=== PATIENT | male | born 1970 | race Caucasian/White ===

== ENCOUNTER 2017-11-03 06:07 | Day surgery (SDC) | payer OTHER | END 2017-11-03 16:00 | disposition home or self-care (01) | LOC: CCL 06:07 → SDS 06:07 | DX: I82.402 Acute embolism and thrombosis of unspecified deep veins of left lower extremity (principal); E11.9 Type 2 diabetes mellitus without complications; I25.10 Atherosclerotic heart disease of native coronary artery without angina pectoris; N18.9 Chronic kidney disease, unspecified; G40.909 Epilepsy, unspecified, not intractable, without status epilepticus | CPT/HCPCS: 37191; 75825; 75940; 76937 ==

== ENCOUNTER 2018-01-26 19:01 | Inpatient (IN) | payer OTHER ==
[2018-01-26] MEDS ORDERED: NORepinephrine 8MG/250 ML (PMX 250 ML IV (20:00)
[2018-01-26 20:41] LABS: HEMOGLOBIN A1C 6.3 % (0-5.9)
[2018-01-26 23:28] LABS: Allen Test ACCEPTAB; Arterial Blood Gas Oxygen Sat 97.7 mmHG (95.0-98.0); Arterial COHb 0.3 % (0.0-3.0); Arterial Fraction of Oxyhgb 96.9 % (93.0-99.0); Arterial HCO3 9.1 mmol/L (22.0-26.0); Arterial MetHb 0.5 % (0.0-1.5); Arterial Total Hemglobin 11.3 g/dl (12.0-18.0); Arterial pCO2 20.5 mmhg (35-45); Blood Gas Mean Airway Pressure 14; MODE VENT - AC; Site Right Radial
[2018-01-26] MEDS ORDERED: DEXTROSE 5%-0.45% NACL 1,000 ML IV (23:42)
[2018-01-27] MEDS ORDERED: ALBUTEROL/IPRATROPIUM (NEB) 3 ML AMP NEB
[2018-01-27] MEDS ORDERED: SODIUM BICARBONATE IV
[2018-01-27] MEDS ORDERED: DEXTROSE 5% IV
[2018-01-27] MEDS ORDERED: ACETAMINOPHEN 650 MG SUPP PR
[2018-01-27] MEDS ORDERED: ACETAMINOPHEN 650MG/20.3ML CUP PO
[2018-01-27] MEDS: SODIUM BICARBONATE (IV ADD) 100 MEQ in DEXTROSE 5% 1,000 ML IV (01:00)
[2018-01-27] MEDS: INSULIN ASPART [NOVOLOG] 3 ML PEN SC ×6 (01:00→21:00)
[2018-01-27] MEDS ORDERED: HYDROCODONE/APAP (5/325) TAB PO (01:30)
[2018-01-27] MEDS ORDERED: LOPERAMIDE HCL 1 MG/5 ML LIQUID (10 ML UD CUP) GTB (01:30)
[2018-01-27] MEDS ORDERED: DIPHENHYDRAMINE 50 MG INJ IV (01:30)
[2018-01-27] MEDS: ACCU-CHEK XX (02:00)
[2018-01-27] MEDS ORDERED: ONDANSETRON 4 MG INJ IV ×2 (02:00)
[2018-01-27] MEDS: IOHEXOL 14.3 MG(I)/ML (ADULT) BTL PO (03:15)
[2018-01-27] MEDS: LEVETIRACETAM 1500 MG (PMX) 100 ML IVPB ×2 (04:48→20:55)
[2018-01-27] MEDS: LANSOPRAZOLE 30 MG CAP GTB (05:53)
[2018-01-27] MEDS: METOCLOPRAMIDE 10 MG INJ IV ×3 (06:30→22:49)
[2018-01-27] MEDS: MIDODRINE 5 MG TAB PO ×4 (06:30→23:04)
[2018-01-27] MEDS: CHOLESTYRAMINE 4 GM PACKET PO (07:00)
[2018-01-27] MEDS: LACTOBACILLUS RHAMNOSUS CAP PO (07:43)
[2018-01-27] MEDS: FAMOTIDINE 20 MG INJ IV ×2 (08:53→22:40)
[2018-01-27] MEDS: BALSAM PERU/CASTOR OIL 60 GM TUBE TOP ×2 (08:53→22:39)
[2018-01-27] MEDS: LINEZOLID 600 MG/D5W (PMX) 300 ML IVPB ×2 (08:54→21:16)
[2018-01-27] MEDS: LORATADINE 10 MG TAB GTB (08:54)
[2018-01-27] MEDS: CARBAMAZEPINE 200 MG TAB PO ×2 (08:54→21:04)
[2018-01-27] MEDS: VALPROIC ACID LIQUID CUP 250 MG/5 ML CUP GTB ×3 (08:55→21:05)
[2018-01-27] MEDS: MULTIVITAMINS 30 ML CUP GTB (08:55)
[2018-01-27] MEDS ORDERED: POTASSIUM CHLORIDE (SR) 20 MEQ TAB PO (09:00)
[2018-01-27] MEDS: RIFAXIMIN 200 MG TAB PO ×3 (09:28→21:03)
[2018-01-27] MEDS: PHENOBARBITAL 32.4 MG TAB PO ×2 (09:36→21:16)
[2018-01-27 09:55] LABS: Allen Test ACCEPTAB; Arterial Base Excess -13.9 mmol/L (-3.0-3); Arterial Blood Gas Oxygen Sat 97.6 mmHG (95.0-98.0); Arterial COHb 0.3 % (0.0-3.0); Arterial Fraction of Oxyhgb 96.9 % (93.0-99.0); Arterial MetHb 0.4 % (0.0-1.5); Arterial Total Hemglobin 9.1 g/dl (12.0-18.0); Arterial pCO2 23.2 mmhg (35-45); MODE VENT - AC; Site Left Radial
[2018-01-27] MEDS: SILVER SULFADIAZINE 1% 25 GM CR TOP ×2 (09:57→21:03)
[2018-01-27] MEDS: NYSTATIN 30 GM POWDER BTL TOP ×2 (09:57→21:02)
[2018-01-27 10:35] LABS: WHITE BLOOD COUNT 26.4 10^3/ul (4.8-10.8)
[2018-01-27 10:35] LABS: ABNORMAL IP MESSAGE 1; HEMATOCRIT 26.3 % (42.0-52.0); HEMOGLOBIN 7.8 g/dl (14.0-18.0); MEAN CORPUSCULAR HEMOGLOBIN 28.9 pg (29.0-33.0); MEAN CORPUSCULAR HGB CONC 29.7 g/dl (32.0-37.0); MEAN CORPUSCULAR VOLUME 97.4 fl (82.0-101.0); MEAN PLATELET VOLUME 11.9 fl (7.4-10.4); NUCLEATED RED BLOOD CELLS% 0.2 /100WBC (0.0-0.0); PLATELET COUNT 218 10^3/UL (140-415); POSITIVE DIFF @See below; RED CELL DISTRIBUTION WIDTH 18.6 % (11.5-14.5)
[2018-01-27 10:43] LABS: ADD MAN DIFF? YES
[2018-01-27 10:58] LABS: LACTIC ACID 7.3 mmol/L (0.5-2.0)
[2018-01-27 11:27] LABS: ANION GAP 25 (5-13); BLOOD UREA NITROGEN 78 mg/dl (7-20); CALCIUM 8.9 mg/dl (8.4-10.2); CARBON DIOXIDE 12 mmol/L (21-31); CHLORIDE 95 mmol/L (97-110); CREATININE 2.65 mg/dl (0.61-1.24); Estimated GFR 26 mL/min (>60); GLUCOSE 51 mg/dl (70-220); POTASSIUM 4.8 mmol/L (3.5-5.1); SODIUM 132 mmol/L (135-144)
[2018-01-27 11:38] LABS: PATH REVIEW? YES
[2018-01-27 11:41] LABS: ANISOCYTOSIS 1+ (0-0); BAND NEUTROPHILS #M 12.1 10^3/ul (0.0-0.6); BAND NEUTROPHILS % (M) 46 % (0-4); EOSINOPHILS % (M) 2 % (0-7); GIANT THROMBO% (M) 1 % (0-0); LYMPHOCYTES #M 1.3 10^3/ul (0.8-2.9); LYMPHOCYTES % (M) 5 % (15-51); MICROCYTOSIS 1+ (0-0); MONOCYTE #M 0.7 10^3/ul (0.3-0.9); MONOCYTES % (M) 3 % (0-11); MYELOCYTES #M 0.7 10^3/ul (0.0-0.0); MYELOCYTES % (M) 3 % (0-0); PLATELET ESTIMATE NORMAL; POIKILOCYTOSIS 1+ (0-0); POLYCHROMASIA 1+ (0-0); SEGMENTED NEUTROPHILS (M) % 41 % (39-77); SMUDGE%M 1 % (0-0)
[2018-01-27] MEDS: NA BICARBONATE 8.4% 50 ML SYG IV (11:42)
[2018-01-27] MEDS: SOD CHLORIDE 0.9% IVPB ×2 (11:42→22:39)
[2018-01-27] MEDS: CEFTAZIDIME IVPB ×2 (11:42→22:39)
[2018-01-27] MEDS: AVIBACTAM IVPB ×2 (11:42→22:39)
[2018-01-27] MEDS: SODIUM BICARBONATE (IV ADD) 150 MEQ in DEXTROSE 5% 1,000 ML IV ×2 (11:47→22:40)
[2018-01-27 11:54] LABS: ALANINE AMINOTRANSFERASE 24 IU/L (13-69); ALBUMIN 2.1 g/dl (3.3-4.9); ALKALINE PHOSPHATASE 344 IU/L (42-121); ASPARTATE AMINO TRANSFERASE 73 IU/L (15-46); BILIRUBIN,INDIRECT 0.2 mg/dl (0-1.1); BILIRUBIN,TOTAL 0.9 mg/dl (0.2-1.3)
[2018-01-27] MEDS: metroNIDAZOLE 500 MG/NS (PMX) 100 ML IVPB ×2 (14:45→22:39)
[2018-01-27 14:53] LABS: ABNORMAL IP MESSAGE 1; HEMATOCRIT 26.8 % (42.0-52.0); HEMOGLOBIN 8.1 g/dl (14.0-18.0); MEAN CORPUSCULAR HEMOGLOBIN 29.1 pg (29.0-33.0); MEAN CORPUSCULAR HGB CONC 30.2 g/dl (32.0-37.0); MEAN CORPUSCULAR VOLUME 96.4 fl (82.0-101.0); MEAN PLATELET VOLUME 12.3 fl (7.4-10.4); NUCLEATED RED BLOOD CELLS% 0.3 /100WBC (0.0-0.0); PLATELET COUNT 215 10^3/UL (140-415); POSITIVE DIFF @See below; RED BLOOD COUNT 2.78 10^6/ul (4.70-6.10); RED CELL DISTRIBUTION WIDTH 18.6 % (11.5-14.5)
[2018-01-27 14:53] LABS: WHITE BLOOD COUNT 28.4 10^3/ul (4.8-10.8)
[2018-01-27 15:02] LABS: ADD MAN DIFF? YES
[2018-01-27] MEDS ORDERED: DEXTROSE 50% 50 ML SYRINGE (15:15)
[2018-01-27 15:24] LABS: ALANINE AMINOTRANSFERASE 10 IU/L (13-69); ALBUMIN 2.5 g/dl (3.3-4.9); ALBUMIN/GLOBULIN RATIO 0.75; ALKALINE PHOSPHATASE 409 IU/L (42-121); ANION GAP 28 (5-13); ASPARTATE AMINO TRANSFERASE 85 IU/L (15-46); BILIRUBIN,INDIRECT 0.2 mg/dl (0-1.1); BILIRUBIN,TOTAL 1.2 mg/dl (0.2-1.3); BLOOD UREA NITROGEN 79 mg/dl (7-20); CALCIUM 9.1 mg/dl (8.4-10.2); CARBON DIOXIDE 10 mmol/L (21-31); CHLORIDE 94 mmol/L (97-110); CREATININE 2.74 mg/dl (0.61-1.24); Estimated GFR 25 mL/min (>60); POTASSIUM 4.8 mmol/L (3.5-5.1); SODIUM 132 mmol/L (135-144); TOTAL PROTEIN 5.8 g/dl (6.1-8.1)
[2018-01-27 15:29] LABS: GLUCOSE 46 mg/dl (70-220)
[2018-01-27] MEDS: DEXTROSE 50% 50 ML SYRINGE IV (15:48)
[2018-01-27] MEDS: COLLAGENASE 5 GM (UD JAR) TOP (16:14)
[2018-01-27 17:31] LABS: ANISOCYTOSIS 1+ (0-0); BAND NEUTROPHILS #M 11.3 10^3/ul (0.0-0.6); BAND NEUTROPHILS % (M) 40 % (0-4); GIANT THROMBO% (M) 3 % (0-0); LYMPHOCYTES #M 0.5 10^3/ul (0.8-2.9); LYMPHOCYTES % (M) 2 % (15-51); METAMYELOCYTES #M 0.2 10^3/ul (0.0-0.0); METAMYELOCYTES %M 1 % (0-0); MONOCYTE #M 1.1 10^3/ul (0.3-0.9); MONOCYTES % (M) 4 % (0-11); PLATELET MORPHOLOGY COMMENT @See below; SEG NEUT #M 18.5 10^3/ul (1.6-7.5); SEGMENTED NEUTROPHILS (M) % 54 % (39-77)
[2018-01-27 20:34] LABS: POTASSIUM,URINE RANDOM 58.5 mmol/L (25-125)
[2018-01-27 20:34] LABS: SODIUM,URINE RANDOM 21 mmol/L (30-90)
[2018-01-27 20:36] LABS: SODIUM,URINE RANDOM 21 mmol/L (30-90)
[2018-01-27 20:36] LABS: ADD UMIC YES; CREATININE,URINE RANDOM 20.13 mg/dl (20-370); UR ASCORBIC ACID NEGATIVE (NEGATIVE); UR BACTERIA FEW /HPF (NONE SEEN); UR BILIRUBIN (Dip) NEGATIVE (NEGATIVE); UR BLOOD (Dip) 1+ mg/dL (NEGATIVE); UR CLARITY CLOUDY (CLEAR); UR COLOR YELLOW (YELLOW); UR GLUCOSE (Dip) NEGATIVE (NEGATIVE); UR KETONES (Dip) NEGATIVE (NEGATIVE); UR LEUKOCYTE ESTERASE (Dip) 1+ Leu/ul (NEGATIVE); UR NITRITE (Dip) NEGATIVE (NEGATIVE); UR RBC 10 /HPF (0-5); UR SPECIFIC GRAVITY (Dip) 1.013 (1.003-1.030); UR SQUAMOUS EPITHELIAL CELL FEW /HPF (FEW); UR TOTAL PROTEIN (Dip) 2+ mg/dl (NEGATIVE); UR UROBILINOGEN (Dip) NEGATIVE (NEGATIVE); UR WBC 77 /HPF (0-5)
[2018-01-28] MEDS: INSULIN ASPART [NOVOLOG] 3 ML PEN SC ×6 (01:07→21:01)
[2018-01-28] MEDS: ACCU-CHEK XX (01:11)
[2018-01-28 04:57] LABS: WHITE BLOOD COUNT 27.6 10^3/ul (4.8-10.8)
[2018-01-28 04:57] LABS: ABNORMAL IP MESSAGE 1; HEMATOCRIT 24.2 % (42.0-52.0); HEMOGLOBIN 7.2 g/dl (14.0-18.0); MEAN CORPUSCULAR HEMOGLOBIN 28.6 pg (29.0-33.0); MEAN CORPUSCULAR HGB CONC 29.8 g/dl (32.0-37.0); MEAN PLATELET VOLUME 12.1 fl (7.4-10.4); NUCLEATED RED BLOOD CELLS% 0.5 /100WBC (0.0-0.0); PLATELET COUNT 207 10^3/UL (140-415); POSITIVE DIFF @See below; RED BLOOD COUNT 2.52 10^6/ul (4.70-6.10); RED CELL DISTRIBUTION WIDTH 19.1 % (11.5-14.5)
[2018-01-28 05:05] LABS: ADD MAN DIFF? YES
[2018-01-28 05:19] LABS: ANION GAP 30 (5-13); BLOOD UREA NITROGEN 73 mg/dl (7-20); CALCIUM 8.1 mg/dl (8.4-10.2); CARBON DIOXIDE 12 mmol/L (21-31); CHLORIDE 90 mmol/L (97-110); CREATININE 2.74 mg/dl (0.61-1.24); Estimated GFR 25 mL/min (>60); GLUCOSE 118 mg/dl (70-220); MAGNESIUM 2.1 mg/dl (1.7-2.5); PHOSPHORUS 8.4 mg/dl (2.5-4.9); POTASSIUM 4.4 mmol/L (3.5-5.1); SODIUM 132 mmol/L (135-144)
[2018-01-28] MEDS: METOCLOPRAMIDE 10 MG INJ IV ×3 (06:04→22:07)
[2018-01-28] MEDS: metroNIDAZOLE 500 MG/NS (PMX) 100 ML IVPB ×3 (06:04→22:07)
[2018-01-28] MEDS: MIDODRINE 5 MG TAB PO ×3 (06:04→17:55)
[2018-01-28] MEDS: LANSOPRAZOLE 30 MG CAP GTB (06:04)
[2018-01-28 07:45] LABS: ANISOCYTOSIS 1+ (0-0); BAND NEUTROPHILS #M 11.3 10^3/ul (0.0-0.6); BAND NEUTROPHILS % (M) 41 % (0-4); BURR CELLS 1+ (0-0); EOSINOPHILS % (M) 1 % (0-7); ERYTHROBLAST% (NRBC) (M) 1 % (0-0); LYMPHOCYTES #M 2.2 10^3/ul (0.8-2.9); LYMPHOCYTES % (M) 8 % (15-51); METAMYELOCYTES #M 0.5 10^3/ul (0.0-0.0); METAMYELOCYTES %M 2 % (0-0); MONOCYTE #M 1.3 10^3/ul (0.3-0.9); MONOCYTES % (M) 5 % (0-11); MYELOCYTES #M 0.2 10^3/ul (0.0-0.0); MYELOCYTES % (M) 1 % (0-0); PLATELET ESTIMATE NORMAL; POIKILOCYTOSIS 1+ (0-0); SEG NEUT #M 14.7 10^3/ul (1.6-7.5); SEGMENTED NEUTROPHILS (M) % 42 % (39-77); SMUDGE%M 17 % (0-0); TOXIC GRANULATION 1+ (0-0)
[2018-01-28] MEDS: NYSTATIN 30 GM POWDER BTL TOP ×2 (09:00→20:34)
[2018-01-28 09:06] LABS: AADO2 Arterial 77.7 mmHg (7.0-24.0); Allen Test ACCEPTAB; Arterial Base Excess -12.3 mmol/L (-3.0-3); Arterial Blood Gas Oxygen Sat 97.3 mmHG (95.0-98.0); Arterial COHb 0.3 % (0.0-3.0); Arterial Fraction of Oxyhgb 96.5 % (93.0-99.0); Arterial HCO3 11.8 mmol/L (22.0-26.0); Arterial MetHb 0.5 % (0.0-1.5); Arterial Total Hemglobin 8.6 g/dl (12.0-18.0); MODE VENT - AC; Site Left Radial
[2018-01-28 09:07] LABS: LACTIC ACID 9.4 mmol/L (0.5-2.0)
[2018-01-28] MEDS: RIFAXIMIN 200 MG TAB PO (10:52)
[2018-01-28] MEDS: FAMOTIDINE 20 MG INJ IV ×2 (10:52→20:51)
[2018-01-28] MEDS: MULTIVITAMINS 30 ML CUP GTB (10:52)
[2018-01-28] MEDS: COLLAGENASE 5 GM (UD JAR) TOP (10:52)
[2018-01-28] MEDS: SODIUM BICARBONATE (IV ADD) 150 MEQ in DEXTROSE 5% 1,000 ML IV ×2 (10:52→22:07)
[2018-01-28] MEDS: CARBAMAZEPINE 200 MG TAB PO ×2 (10:53→20:52)
[2018-01-28] MEDS: PHENOBARBITAL 32.4 MG TAB PO ×2 (10:53→20:52)
[2018-01-28] MEDS: LORATADINE 10 MG TAB GTB (10:53)
[2018-01-28] MEDS: LEVETIRACETAM 1500 MG (PMX) 100 ML IVPB ×2 (10:53→20:15)
[2018-01-28] MEDS: SILVER SULFADIAZINE 1% 25 GM CR TOP ×2 (10:54→20:34)
[2018-01-28] MEDS: BALSAM PERU/CASTOR OIL 60 GM TUBE TOP ×2 (10:55→20:34)
[2018-01-28] MEDS: LINEZOLID 600 MG/D5W (PMX) 300 ML IVPB ×2 (11:09→20:33)
[2018-01-28] MEDS: AVIBACTAM IVPB ×2 (11:09→20:25)
[2018-01-28] MEDS: VALPROIC ACID LIQUID CUP 250 MG/5 ML CUP GTB ×3 (11:09→20:51)
[2018-01-28] MEDS: CEFTAZIDIME IVPB ×2 (11:09→20:25)
[2018-01-28] MEDS: SOD CHLORIDE 0.9% IVPB ×2 (11:09→20:25)
[2018-01-29] MEDS: MIDODRINE 5 MG TAB PO ×4 (00:58→18:02)
[2018-01-29] MEDS: INSULIN ASPART [NOVOLOG] 3 ML PEN SC ×6 (01:05→21:00)
[2018-01-29] MEDS: ACCU-CHEK XX (01:23)
[2018-01-29 02:04] LABS: ANION GAP 36 (5-13); BLOOD UREA NITROGEN 69 mg/dl (7-20); CALCIUM 7.9 mg/dl (8.4-10.2); CARBON DIOXIDE 14 mmol/L (21-31); CHLORIDE 88 mmol/L (97-110); Estimated GFR 24 mL/min (>60); GLUCOSE 157 mg/dl (70-220); PHOSPHORUS 7.5 mg/dl (2.5-4.9); SODIUM 138 mmol/L (135-144)
[2018-01-29 02:11] LABS: POTASSIUM 2.9 mmol/L (3.5-5.1)
[2018-01-29] MEDS ORDERED: POTASSIUM CHLORIDE 50 ML (02:41)
[2018-01-29] MEDS: POTASSIUM CHLORIDE 50 ML IVPB ×8 (02:44→23:11)
[2018-01-29] MEDS ORDERED: MAGNESIUM SULFATE 2 GM/50 ML 50 ML (04:19)
[2018-01-29] MEDS: MAGNESIUM SULFATE 2 GM/50 ML 50 ML IVPB (04:22)
[2018-01-29] MEDS: METOCLOPRAMIDE 10 MG INJ IV ×3 (06:20→22:08)
[2018-01-29] MEDS: LANSOPRAZOLE 30 MG CAP GTB (06:20)
[2018-01-29] MEDS: metroNIDAZOLE 500 MG/NS (PMX) 100 ML IVPB ×2 (06:20→13:31)
[2018-01-29 07:07] LABS: ADD MAN DIFF? NO
[2018-01-29 07:16] LABS: ABNORMAL IP MESSAGE 1; BASOPHILS % 0.1 % (0.0-2.0); EOSINOPHILS # 0.2 10^3/ul (0.0-0.5); HEMATOCRIT 24.1 % (42.0-52.0); HEMOGLOBIN 7.6 g/dl (14.0-18.0); LYMPHOCYTES # 0.8 10^3/ul (0.8-2.9); LYMPHOCYTES % 3.6 % (15.0-51.0); MEAN CORPUSCULAR HEMOGLOBIN 29.1 pg (29.0-33.0); MEAN CORPUSCULAR HGB CONC 31.5 g/dl (32.0-37.0); MEAN CORPUSCULAR VOLUME 92.3 fl (82.0-101.0); MEAN PLATELET VOLUME 11.9 fl (7.4-10.4); MONOCYTE # 1.7 10^3/ul (0.3-0.9); MONOCYTES % 7.6 % (0.0-11.0); NEUTROPHIL # 19.1 10^3/ul (1.6-7.5); NEUTROPHILS % 85.9 % (39.0-77.0); NUCLEATED RED BLOOD CELLS # 0.1 10^3/ul (0.0-0.0); NUCLEATED RED BLOOD CELLS% 0.2 /100WBC (0.0-0.0); PLATELET COUNT 166 10^3/UL (140-415); POSITIVE DIFF @See below; RED BLOOD COUNT 2.61 10^6/ul (4.70-6.10); RED CELL DISTRIBUTION WIDTH 18.7 % (11.5-14.5)
[2018-01-29 07:16] LABS: WHITE BLOOD COUNT 22.2 10^3/ul (4.8-10.8)
[2018-01-29 07:47] LABS: ANION GAP 35 (5-13); BLOOD UREA NITROGEN 69 mg/dl (7-20); CALCIUM 7.9 mg/dl (8.4-10.2); CARBON DIOXIDE 15 mmol/L (21-31); CHLORIDE 87 mmol/L (97-110); CREATININE 2.74 mg/dl (0.61-1.24); Estimated GFR 25 mL/min (>60); GLUCOSE 136 mg/dl (70-220); MAGNESIUM 2.5 mg/dl (1.7-2.5); PHOSPHORUS 7.4 mg/dl (2.5-4.9); POTASSIUM 3.2 mmol/L (3.5-5.1); SODIUM 137 mmol/L (135-144)
[2018-01-29 07:48] LABS: LACTIC ACID 8.9 mmol/L (0.5-2.0)
[2018-01-29 09:13] LABS: AADO2 Arterial 83.7 mmHg (7.0-24.0); Allen Test ACCEPTAB; Arterial Base Excess -7.1 mmol/L (-3.0-3); Arterial Blood Gas Oxygen Sat 97.6 mmHG (95.0-98.0); Arterial COHb 0.3 % (0.0-3.0); Arterial Fraction of Oxyhgb 96.6 % (93.0-99.0); Arterial HCO3 14.9 mmol/L (22.0-26.0); Arterial MetHb 0.7 % (0.0-1.5); Arterial Total Hemglobin 9.6 g/dl (12.0-18.0); Arterial pCO2 20.4 mmhg (35-45); MODE VENT - AC; Site Right Radial
[2018-01-29] MEDS: LEVETIRACETAM 1500 MG (PMX) 100 ML IVPB ×2 (09:50→20:49)
[2018-01-29] MEDS: LINEZOLID 600 MG/D5W (PMX) 300 ML IVPB ×2 (09:51→20:49)
[2018-01-29] MEDS: FAMOTIDINE 20 MG INJ IV ×2 (09:52→20:57)
[2018-01-29] MEDS: SOD CHLORIDE 0.9% 1,000 ML IV (09:52)
[2018-01-29] MEDS: AVIBACTAM IVPB ×2 (09:52→20:57)
[2018-01-29] MEDS: MULTIVITAMINS 30 ML CUP GTB (09:52)
[2018-01-29] MEDS: SOD CHLORIDE 0.9% IVPB ×2 (09:52→20:57)
[2018-01-29] MEDS: CEFTAZIDIME IVPB ×2 (09:52→20:57)
[2018-01-29] MEDS: LORATADINE 10 MG TAB GTB (09:53)
[2018-01-29] MEDS: PHENOBARBITAL 32.4 MG TAB PO ×2 (09:53→20:58)
[2018-01-29] MEDS: CARBAMAZEPINE 200 MG TAB PO ×2 (09:53→20:49)
[2018-01-29] MEDS: VALPROIC ACID LIQUID CUP 250 MG/5 ML CUP GTB ×3 (09:54→21:16)
[2018-01-29] MEDS: BALSAM PERU/CASTOR OIL 60 GM TUBE TOP ×2 (09:55→20:49)
[2018-01-29] MEDS: COLLAGENASE 5 GM (UD JAR) TOP (09:55)
[2018-01-29] MEDS: NYSTATIN 30 GM POWDER BTL TOP ×2 (09:55→20:51)
[2018-01-29] MEDS: SILVER SULFADIAZINE 1% 25 GM CR TOP ×2 (09:55→20:51)
[2018-01-29 15:01] LABS: CREATININE, RANDOM URINE 23 mg/dL (20-320); MICROALBUMIN 15.1 mg/dL; MICROALBUMIN/CREATININE RATIO 657 (<30)
[2018-01-29 18:47] LABS: MAGNESIUM 2.5 mg/dl (1.7-2.5)
[2018-01-29] MEDS ORDERED: SOD CHLORIDE 0.9% 1,000 ML IV (20:30)
[2018-01-29] MEDS: NS + KCL 20 MEQ 1,000 ML IV (21:16)
[2018-01-30] MEDS: INSULIN ASPART [NOVOLOG] 3 ML PEN SC ×6 (00:26→21:00)
[2018-01-30] MEDS: MIDODRINE 5 MG TAB PO ×4 (00:26→17:33)
[2018-01-30] MEDS: DOPamine-D5W 1.6 MG/ML 250 ML IV (00:54)
[2018-01-30] MEDS: ACCU-CHEK XX (02:00)
[2018-01-30] MEDS ORDERED: PHENYLephrine 20MG IN 250 ML 250 ML IV (02:30)
[2018-01-30] MEDS ORDERED: DILTIAZEM 25 MG INJ IV (02:30)
[2018-01-30] MEDS ORDERED: ADENOSINE 6 MG INJ IV ×2 (02:30)
[2018-01-30] MEDS: LANSOPRAZOLE 30 MG CAP GTB (05:38)
[2018-01-30] MEDS: METOCLOPRAMIDE 10 MG INJ IV ×3 (05:39→21:45)
[2018-01-30 05:43] LABS: HEMATOCRIT 26.4 % (42.0-52.0); HEMOGLOBIN 8.3 g/dl (14.0-18.0); MEAN CORPUSCULAR HEMOGLOBIN 28.8 pg (29.0-33.0); MEAN CORPUSCULAR HGB CONC 31.4 g/dl (32.0-37.0); MEAN CORPUSCULAR VOLUME 91.7 fl (82.0-101.0); MEAN PLATELET VOLUME 12.2 fl (7.4-10.4); NUCLEATED RED BLOOD CELLS% 0.2 /100WBC (0.0-0.0); PLATELET COUNT 142 10^3/UL (140-415); POSITIVE DIFF @See below; RED BLOOD COUNT 2.88 10^6/ul (4.70-6.10); RED CELL DISTRIBUTION WIDTH 19.1 % (11.5-14.5)
[2018-01-30 05:43] LABS: WHITE BLOOD COUNT 21.3 10^3/ul (4.8-10.8)
[2018-01-30 05:44] LABS: ADD MAN DIFF? YES
[2018-01-30] MEDS: PHENYLephrine 40 MG in DEXTROSE 5% 496 ML IV ×2 (05:54→17:34)
[2018-01-30 06:38] LABS: ANION GAP 32 (5-13); BLOOD UREA NITROGEN 64 mg/dl (7-20); CALCIUM 8.2 mg/dl (8.4-10.2); CARBON DIOXIDE 13 mmol/L (21-31); CHLORIDE 92 mmol/L (97-110); CREATININE 2.53 mg/dl (0.61-1.24); Estimated GFR 27 mL/min (>60); GLUCOSE 98 mg/dl (70-220); MAGNESIUM 2.3 mg/dl (1.7-2.5); PHOSPHORUS 8.1 mg/dl (2.5-4.9); POTASSIUM 3.5 mmol/L (3.5-5.1); SODIUM 137 mmol/L (135-144)
[2018-01-30 06:54] LABS: LACTIC ACID 8.7 mmol/L (0.5-2.0)
[2018-01-30 07:02] LABS: ANISOCYTOSIS 2+ (0-0); BAND NEUTROPHILS #M 3.8 10^3/ul (0.0-0.6); BAND NEUTROPHILS % (M) 18 % (0-4); BURR CELLS 1+ (0-0); EOSINOPHILS % (M) 1 % (0-7); ERYTHROBLAST% (NRBC) (M) 1 % (0-0); GIANT THROMBO% (M) 4 % (0-0); LYMPHOCYTES % (M) 5 % (15-51); MONOCYTE #M 1.2 10^3/ul (0.3-0.9); MONOCYTES % (M) 6 % (0-11); PLATELET ESTIMATE NORMAL; POIKILOCYTOSIS 1+ (0-0); POLYCHROMASIA 1+ (0-0); PROMYELOCYTES #M 0.2 10^3/ul (0-0); PROMYELOCYTES % (M) 1 % (0-0); SEG NEUT #M 15.5 10^3/ul (1.6-7.5); SEGMENTED NEUTROPHILS (M) % 69 % (39-77); SMUDGE%M 26 % (0-0)
[2018-01-30] MEDS: LEVETIRACETAM 1500 MG (PMX) 100 ML IVPB ×2 (08:12→22:09)
[2018-01-30] MEDS: LINEZOLID 600 MG/D5W (PMX) 300 ML IVPB ×2 (08:13→21:46)
[2018-01-30] MEDS: MULTIVITAMINS 30 ML CUP GTB (08:13)
[2018-01-30] MEDS: CARBAMAZEPINE 200 MG TAB PO ×2 (08:13→21:46)
[2018-01-30] MEDS: VALPROIC ACID LIQUID CUP 250 MG/5 ML CUP GTB ×3 (08:13→21:46)
[2018-01-30] MEDS: FAMOTIDINE 20 MG INJ IV (08:14)
[2018-01-30] MEDS: LORATADINE 10 MG TAB GTB (08:14)
[2018-01-30] MEDS: PHENOBARBITAL 32.4 MG TAB PO ×2 (08:14→21:51)
[2018-01-30] MEDS: SILVER SULFADIAZINE 1% 25 GM CR TOP ×2 (08:22→22:01)
[2018-01-30] MEDS: COLLAGENASE 5 GM (UD JAR) TOP (08:22)
[2018-01-30] MEDS: NYSTATIN 30 GM POWDER BTL TOP ×2 (08:22→21:00)
[2018-01-30] MEDS: BALSAM PERU/CASTOR OIL 60 GM TUBE TOP ×2 (08:23→22:01)
[2018-01-30] MEDS: SOD CHLORIDE 0.9% IVPB ×2 (09:50→22:09)
[2018-01-30] MEDS: AVIBACTAM IVPB ×2 (09:50→22:09)
[2018-01-30] MEDS: CEFTAZIDIME IVPB ×2 (09:50→22:09)
[2018-01-30] MEDS: NS + KCL 20 MEQ 1,000 ML IV ×2 (10:36→23:18)
[2018-01-31] MEDS: MIDODRINE 5 MG TAB PO ×5 (01:34→23:48)
[2018-01-31] MEDS: INSULIN ASPART [NOVOLOG] 3 ML PEN SC ×6 (01:42→20:39)
[2018-01-31] MEDS: ACCU-CHEK XX (02:12)
[2018-01-31 05:24] LABS: Allen Test ACCEPTAB; Arterial Base Excess -10.7 mmol/L (-3.0-3); Arterial Blood Gas Oxygen Sat 98.1 mmHG (95.0-98.0); Arterial COHb 0.3 % (0.0-3.0); Arterial Fraction of Oxyhgb 97.4 % (93.0-99.0); Arterial HCO3 12.2 mmol/L (22.0-26.0); Arterial MetHb 0.4 % (0.0-1.5); Arterial Total Hemglobin 11.4 g/dl (12.0-18.0); Arterial pCO2 20.4 mmhg (35-45); MODE VENT - AC; Site Left Radial
[2018-01-31 06:13] LABS: ADD MAN DIFF? NO
[2018-01-31 06:19] LABS: BASOPHILS % 0.1 % (0.0-2.0); EOSINOPHILS # 0.2 10^3/ul (0.0-0.5); EOSINOPHILS % 1.5 % (0.0-7.0); HEMATOCRIT 27.4 % (42.0-52.0); HEMOGLOBIN 8.7 g/dl (14.0-18.0); LYMPHOCYTES # 0.8 10^3/ul (0.8-2.9); LYMPHOCYTES % 5.9 % (15.0-51.0); MEAN CORPUSCULAR HEMOGLOBIN 28.9 pg (29.0-33.0); MEAN CORPUSCULAR HGB CONC 31.8 g/dl (32.0-37.0); MEAN PLATELET VOLUME 12.8 fl (7.4-10.4); MONOCYTE # 0.9 10^3/ul (0.3-0.9); MONOCYTES % 6.3 % (0.0-11.0); NEUTROPHIL # 11.6 10^3/ul (1.6-7.5); NUCLEATED RED BLOOD CELLS% 0.2 /100WBC (0.0-0.0); PLATELET COUNT 127 10^3/UL (140-415); RED BLOOD COUNT 3.01 10^6/ul (4.70-6.10); RED CELL DISTRIBUTION WIDTH 19.1 % (11.5-14.5)
[2018-01-31 06:19] LABS: WHITE BLOOD COUNT 13.7 10^3/ul (4.8-10.8)
[2018-01-31] MEDS: LANSOPRAZOLE 30 MG CAP GTB (06:21)
[2018-01-31] MEDS: METOCLOPRAMIDE 10 MG INJ IV ×3 (06:21→21:13)
[2018-01-31 07:06] LABS: ANION GAP 28 (5-13); BLOOD UREA NITROGEN 59 mg/dl (7-20); CALCIUM 8.6 mg/dl (8.4-10.2); CARBON DIOXIDE 12 mmol/L (21-31); CHLORIDE 97 mmol/L (97-110); Estimated GFR 29 mL/min (>60); GLUCOSE 112 mg/dl (70-220); SODIUM 137 mmol/L (135-144)
[2018-01-31 07:15] LABS: POTASSIUM 2.5 mmol/L (3.5-5.1)
[2018-01-31 07:38] LABS: MAGNESIUM 2.1 mg/dl (1.7-2.5)
[2018-01-31] MEDS: POTASSIUM CHLORIDE 50 ML IVPB ×3 (08:08→10:28)
[2018-01-31] MEDS: LEVETIRACETAM 1500 MG (PMX) 100 ML IVPB ×2 (08:08→20:21)
[2018-01-31] MEDS: COLLAGENASE 5 GM (UD JAR) TOP (08:09)
[2018-01-31] MEDS: VALPROIC ACID LIQUID CUP 250 MG/5 ML CUP GTB ×3 (08:09→21:00)
[2018-01-31] MEDS: FAMOTIDINE 20 MG INJ IV (08:09)
[2018-01-31] MEDS: LINEZOLID 600 MG/D5W (PMX) 300 ML IVPB ×2 (08:09→20:28)
[2018-01-31] MEDS: CARBAMAZEPINE 200 MG TAB PO ×2 (08:09→20:37)
[2018-01-31] MEDS: LORATADINE 10 MG TAB GTB (08:09)
[2018-01-31] MEDS: MULTIVITAMINS 30 ML CUP GTB (08:10)
[2018-01-31] MEDS: PHENOBARBITAL 32.4 MG TAB PO ×2 (08:12→20:37)
[2018-01-31] MEDS: SILVER SULFADIAZINE 1% 25 GM CR TOP ×2 (08:13→20:39)
[2018-01-31] MEDS: BALSAM PERU/CASTOR OIL 60 GM TUBE TOP ×2 (08:13→20:39)
[2018-01-31] MEDS: NYSTATIN 30 GM POWDER BTL TOP ×2 (08:14→20:39)
[2018-01-31] MEDS: SOD CHLORIDE 0.9% IVPB ×2 (09:12→20:28)
[2018-01-31] MEDS: AVIBACTAM IVPB ×2 (09:12→20:28)
[2018-01-31] MEDS: CEFTAZIDIME IVPB ×2 (09:12→20:28)
[2018-01-31] MEDS: CITRIC ACID/NA CITRATE 30 ML CUP GTB ×2 (15:51→22:08)
[2018-01-31] MEDS: PHENYLephrine 40 MG in DEXTROSE 5% 496 ML IV (16:00)
[2018-01-31] MEDS: NS + KCL 20 MEQ 1,000 ML IV (20:16)
[2018-02-01] MEDS: INSULIN ASPART [NOVOLOG] 3 ML PEN SC ×6 (00:05→21:32)
[2018-02-01] MEDS: ACCU-CHEK XX (00:06)
[2018-02-01] MEDS: NS + KCL 20 MEQ 1,000 ML IV ×3 (02:45→23:04)
[2018-02-01 05:16] LABS: AADO2 Arterial 62.2 mmHg (7.0-24.0); Allen Test ACCEPTAB; Arterial Base Excess -13.1 mmol/L (-3.0-3); Arterial Blood Gas Oxygen Sat 97.7 mmHG (95.0-98.0); Arterial COHb 0.4 % (0.0-3.0); Arterial Fraction of Oxyhgb 96.9 % (93.0-99.0); Arterial HCO3 11.6 mmol/L (22.0-26.0); Arterial MetHb 0.4 % (0.0-1.5); Arterial Total Hemglobin 8.6 g/dl (12.0-18.0); Arterial pCO2 23.5 mmhg (35-45); MODE VENT - AC; Site Right Radial
[2018-02-01 05:29] LABS: ADD MAN DIFF? NO
[2018-02-01] MEDS: LANSOPRAZOLE 30 MG CAP GTB (05:32)
[2018-02-01] MEDS: METOCLOPRAMIDE 10 MG INJ IV ×3 (05:32→22:08)
[2018-02-01] MEDS: MIDODRINE 5 MG TAB PO ×3 (05:32→18:10)
[2018-02-01 05:46] LABS: BASOPHILS % 0.1 % (0.0-2.0); EOSINOPHILS # 0.2 10^3/ul (0.0-0.5); EOSINOPHILS % 1.3 % (0.0-7.0); HEMATOCRIT 25.2 % (42.0-52.0); HEMOGLOBIN 7.7 g/dl (14.0-18.0); LYMPHOCYTES # 0.9 10^3/ul (0.8-2.9); LYMPHOCYTES % 6.2 % (15.0-51.0); MEAN CORPUSCULAR HEMOGLOBIN 28.7 pg (29.0-33.0); MEAN CORPUSCULAR HGB CONC 30.6 g/dl (32.0-37.0); MEAN PLATELET VOLUME 12.9 fl (7.4-10.4); MONOCYTE # 0.8 10^3/ul (0.3-0.9); MONOCYTES % 5.6 % (0.0-11.0); NEUTROPHIL # 12.8 10^3/ul (1.6-7.5); NEUTROPHILS % 84.9 % (39.0-77.0); NUCLEATED RED BLOOD CELLS% 0.3 /100WBC (0.0-0.0); PLATELET COUNT 110 10^3/UL (140-415); RED BLOOD COUNT 2.68 10^6/ul (4.70-6.10); RED CELL DISTRIBUTION WIDTH 19.5 % (11.5-14.5)
[2018-02-01 06:01] LABS: ANION GAP 29 (5-13); BLOOD UREA NITROGEN 51 mg/dl (7-20); CALCIUM 8.2 mg/dl (8.4-10.2); CARBON DIOXIDE 11 mmol/L (21-31); CHLORIDE 104 mmol/L (97-110); CREATININE 2.12 mg/dl (0.61-1.24); Estimated GFR 34 mL/min (>60); GLUCOSE 143 mg/dl (70-220); SODIUM 144 mmol/L (135-144)
[2018-02-01 06:04] LABS: LACTIC ACID 6.1 mmol/L (0.5-2.0)
[2018-02-01 06:29] LABS: POTASSIUM 2.3 mmol/L (3.5-5.1)
[2018-02-01] MEDS: POTASSIUM CHLORIDE 50 ML IVPB ×4 (06:54→12:35)
[2018-02-01] MEDS: SOD CHLORIDE 0.9% 500 ML IV (06:54)
[2018-02-01] MEDS: LEVETIRACETAM 1500 MG (PMX) 100 ML IVPB ×2 (09:07→21:27)
[2018-02-01] MEDS: LINEZOLID 600 MG/D5W (PMX) 300 ML IVPB ×2 (09:08→21:27)
[2018-02-01] MEDS: CITRIC ACID/NA CITRATE 30 ML CUP GTB ×2 (09:10→21:26)
[2018-02-01] MEDS: COLLAGENASE 5 GM (UD JAR) TOP (09:10)
[2018-02-01] MEDS: MULTIVITAMINS 30 ML CUP GTB (09:10)
[2018-02-01] MEDS: FAMOTIDINE 20 MG INJ IV (09:10)
[2018-02-01] MEDS: PHENOBARBITAL 32.4 MG TAB PO ×2 (09:11→21:26)
[2018-02-01] MEDS: LORATADINE 10 MG TAB GTB (09:11)
[2018-02-01] MEDS: CARBAMAZEPINE 200 MG TAB PO ×2 (09:11→21:26)
[2018-02-01] MEDS: BALSAM PERU/CASTOR OIL 60 GM TUBE TOP ×2 (09:12→21:27)
[2018-02-01] MEDS: SILVER SULFADIAZINE 1% 25 GM CR TOP ×2 (09:12→21:27)
[2018-02-01] MEDS: NYSTATIN 30 GM POWDER BTL TOP ×2 (09:13→21:28)
[2018-02-01] MEDS: VALPROIC ACID LIQUID CUP 250 MG/5 ML CUP GTB ×3 (09:35→21:27)
[2018-02-01] MEDS: CEFTAZIDIME IVPB ×2 (10:59→21:27)
[2018-02-01] MEDS: AVIBACTAM IVPB ×2 (10:59→21:27)
[2018-02-01] MEDS: SOD CHLORIDE 0.9% IVPB ×2 (10:59→21:27)
[2018-02-01 11:39] LABS: LACTIC ACID 4.8 mmol/L (0.5-2.0)
[2018-02-01 14:14] LABS: ANION GAP 25 (5-13); BLOOD UREA NITROGEN 46 mg/dl (7-20); CALCIUM 8.2 mg/dl (8.4-10.2); CARBON DIOXIDE 10 mmol/L (21-31); CHLORIDE 108 mmol/L (97-110); CREATININE 1.98 mg/dl (0.61-1.24); Estimated GFR 36 mL/min (>60); GLUCOSE 151 mg/dl (70-220); POTASSIUM 3.1 mmol/L (3.5-5.1); SODIUM 143 mmol/L (135-144)
[2018-02-01] MEDS: LIDOCAINE 1% (MPF) 5 ML VIAL SC (16:16)
[2018-02-01] MEDS: PHENYLephrine 40 MG in DEXTROSE 5% 496 ML IV (20:12)
[2018-02-02] MEDS: MIDODRINE 5 MG TAB PO ×4 (00:49→18:41)
[2018-02-02] MEDS: INSULIN ASPART [NOVOLOG] 3 ML PEN SC ×6 (00:55→20:26)
[2018-02-02] MEDS: ACCU-CHEK XX (01:21)
[2018-02-02 05:15] LABS: ADD MAN DIFF? NO
[2018-02-02 05:20] LABS: WHITE BLOOD COUNT 15.8 10^3/ul (4.8-10.8)
[2018-02-02 05:20] LABS: ABNORMAL IP MESSAGE 1; BASOPHILS % 0.2 % (0.0-2.0); EOSINOPHILS # 0.1 10^3/ul (0.0-0.5); EOSINOPHILS % 0.6 % (0.0-7.0); HEMATOCRIT 23.9 % (42.0-52.0); HEMOGLOBIN 7.5 g/dl (14.0-18.0); LYMPHOCYTES % 6.6 % (15.0-51.0); MEAN CORPUSCULAR HEMOGLOBIN 29.2 pg (29.0-33.0); MEAN CORPUSCULAR HGB CONC 31.4 g/dl (32.0-37.0); MEAN PLATELET VOLUME 13.1 fl (7.4-10.4); MONOCYTE # 0.9 10^3/ul (0.3-0.9); MONOCYTES % 5.7 % (0.0-11.0); NEUTROPHIL # 13.4 10^3/ul (1.6-7.5); NEUTROPHILS % 84.9 % (39.0-77.0); NUCLEATED RED BLOOD CELLS # 0.1 10^3/ul (0.0-0.0); NUCLEATED RED BLOOD CELLS% 0.4 /100WBC (0.0-0.0); PLATELET COUNT 91 10^3/UL (140-415); POSITIVE DIFF @See below; RED BLOOD COUNT 2.57 10^6/ul (4.70-6.10); RED CELL DISTRIBUTION WIDTH 20.3 % (11.5-14.5)
[2018-02-02 05:45] LABS: ANION GAP 24 (5-13); BLOOD UREA NITROGEN 45 mg/dl (7-20); CALCIUM 8.4 mg/dl (8.4-10.2); CARBON DIOXIDE 11 mmol/L (21-31); CHLORIDE 110 mmol/L (97-110); CREATININE 1.93 mg/dl (0.61-1.24); Estimated GFR 37 mL/min (>60); GLUCOSE 96 mg/dl (70-220); MAGNESIUM 1.6 mg/dl (1.7-2.5); SODIUM 145 mmol/L (135-144)
[2018-02-02] MEDS: METOCLOPRAMIDE 10 MG INJ IV ×3 (05:51→22:14)
[2018-02-02] MEDS: LANSOPRAZOLE 30 MG CAP GTB (05:52)
[2018-02-02 05:59] LABS: POTASSIUM 2.7 mmol/L (3.5-5.1)
[2018-02-02] MEDS: MAGNESIUM SULFATE 3 GM in DEXTROSE 5% 100 ML IVPB (07:36)
[2018-02-02] MEDS: POTASSIUM CHLORIDE 50 ML IVPB ×3 (07:36→11:19)
[2018-02-02 07:57] LABS: RETICULOCYTE RBC 2.61
[2018-02-02 07:57] LABS: RETICULOCYTE COUNT # 0.025 X10^6 (0.020-0.110)
[2018-02-02] MEDS: CITRIC ACID/NA CITRATE 30 ML CUP GTB ×2 (08:12→20:28)
[2018-02-02] MEDS: MULTIVITAMINS 30 ML CUP GTB (08:12)
[2018-02-02] MEDS: CARBAMAZEPINE 200 MG TAB PO ×2 (08:12→20:28)
[2018-02-02] MEDS: VALPROIC ACID LIQUID CUP 250 MG/5 ML CUP GTB ×3 (08:12→20:28)
[2018-02-02] MEDS: LORATADINE 10 MG TAB GTB (08:12)
[2018-02-02] MEDS: PHENOBARBITAL 32.4 MG TAB PO ×2 (08:13→20:28)
[2018-02-02] MEDS: BALSAM PERU/CASTOR OIL 60 GM TUBE TOP ×2 (08:13→20:29)
[2018-02-02] MEDS: LEVETIRACETAM 1500 MG (PMX) 100 ML IVPB ×2 (08:13→20:26)
[2018-02-02] MEDS: COLLAGENASE 5 GM (UD JAR) TOP (08:14)
[2018-02-02] MEDS: SILVER SULFADIAZINE 1% 25 GM CR TOP ×2 (08:14→20:30)
[2018-02-02] MEDS: NYSTATIN 30 GM POWDER BTL TOP ×2 (08:15→20:29)
[2018-02-02] MEDS: FAMOTIDINE 20 MG INJ IV (08:19)
[2018-02-02 09:43] LABS: FOLATE > 20.0 ng/ml (2.8-20.0)
[2018-02-02] MEDS: AVIBACTAM IVPB ×2 (09:45→20:40)
[2018-02-02] MEDS: D5W-0.45 NACL + KCL 40 MEQ 1,000 ML IV ×3 (09:45→23:05)
[2018-02-02] MEDS: SOD CHLORIDE 0.9% IVPB ×2 (09:45→20:40)
[2018-02-02] MEDS: CEFTAZIDIME IVPB ×2 (09:45→20:40)
[2018-02-02] MEDS: LIDOCAINE 1% (MPF) 5 ML VIAL SC (10:00)
[2018-02-02] MEDS: LINEZOLID 600 MG/D5W (PMX) 300 ML IVPB ×2 (12:14→20:41)
[2018-02-02] MEDS ORDERED: POTASSIUM CHLORIDE 40 MEQ in DEXTROSE 5% 1,000 ML IV (12:30)
[2018-02-02 12:45] LABS: ANION GAP 23 (5-13); BLOOD UREA NITROGEN 40 mg/dl (7-20); CALCIUM 8.3 mg/dl (8.4-10.2); CARBON DIOXIDE 10 mmol/L (21-31); CHLORIDE 113 mmol/L (97-110); CREATININE 1.78 mg/dl (0.61-1.24); Estimated GFR 41 mL/min (>60); GLUCOSE 131 mg/dl (70-220); POTASSIUM 3.3 mmol/L (3.5-5.1); SODIUM 146 mmol/L (135-144)
[2018-02-03] MEDS: MIDODRINE 5 MG TAB PO ×4 (01:01→17:03)
[2018-02-03] MEDS: ACCU-CHEK XX ×2 (01:12→21:00)
[2018-02-03] MEDS: INSULIN ASPART [NOVOLOG] 3 ML PEN SC ×6 (01:12→20:39)
[2018-02-03 05:05] LABS: ADD MAN DIFF? NO
[2018-02-03 05:11] LABS: ABNORMAL IP MESSAGE 1; BASOPHILS % 0.1 % (0.0-2.0); EOSINOPHILS # 0.2 10^3/ul (0.0-0.5); EOSINOPHILS % 1.2 % (0.0-7.0); HEMATOCRIT 23.4 % (42.0-52.0); HEMOGLOBIN 7.1 g/dl (14.0-18.0); LYMPHOCYTES # 1.3 10^3/ul (0.8-2.9); LYMPHOCYTES % 10.2 % (15.0-51.0); MEAN CORPUSCULAR HGB CONC 30.3 g/dl (32.0-37.0); MEAN CORPUSCULAR VOLUME 95.5 fl (82.0-101.0); MEAN PLATELET VOLUME 13.5 fl (7.4-10.4); MONOCYTES % 7.6 % (0.0-11.0); NEUTROPHIL # 10.2 10^3/ul (1.6-7.5); NUCLEATED RED BLOOD CELLS # 0.1 10^3/ul (0.0-0.0); NUCLEATED RED BLOOD CELLS% 0.6 /100WBC (0.0-0.0); PLATELET COUNT 72 10^3/UL (140-415); POSITIVE DIFF @See below; RED BLOOD COUNT 2.45 10^6/ul (4.70-6.10); RED CELL DISTRIBUTION WIDTH 20.7 % (11.5-14.5)
[2018-02-03 05:11] LABS: WHITE BLOOD COUNT 12.9 10^3/ul (4.8-10.8)
[2018-02-03] MEDS: METOCLOPRAMIDE 10 MG INJ IV ×3 (05:16→21:51)
[2018-02-03] MEDS: SOD CHLORIDE 0.9% IVPB ×3 (05:16→21:51)
[2018-02-03] MEDS: CEFTAZIDIME IVPB ×3 (05:16→21:51)
[2018-02-03] MEDS: AVIBACTAM IVPB ×3 (05:16→21:51)
[2018-02-03] MEDS: LANSOPRAZOLE 30 MG CAP GTB (05:16)
[2018-02-03 05:37] LABS: ANION GAP 23 (5-13); BLOOD UREA NITROGEN 36 mg/dl (7-20); CALCIUM 8.6 mg/dl (8.4-10.2); CARBON DIOXIDE 10 mmol/L (21-31); CHLORIDE 113 mmol/L (97-110); CREATININE 1.68 mg/dl (0.61-1.24); Estimated GFR 44 mL/min (>60); GLUCOSE 154 mg/dl (70-220); MAGNESIUM 1.9 mg/dl (1.7-2.5); PHOSPHORUS 7.3 mg/dl (2.5-4.9); POTASSIUM 3.1 mmol/L (3.5-5.1); SODIUM 146 mmol/L (135-144)
[2018-02-03 06:38] LABS: OCCULT BLOOD STOOL NEGATIVE (NEGATIVE)
[2018-02-03] MEDS: COLLAGENASE 5 GM (UD JAR) TOP (07:48)
[2018-02-03] MEDS: NYSTATIN 30 GM POWDER BTL TOP ×2 (07:50→20:38)
[2018-02-03] MEDS: SILVER SULFADIAZINE 1% 25 GM CR TOP ×2 (07:50→20:38)
[2018-02-03] MEDS: FAMOTIDINE 20 MG INJ IV (07:51)
[2018-02-03] MEDS: CITRIC ACID/NA CITRATE 30 ML CUP GTB ×2 (07:53→20:37)
[2018-02-03] MEDS: LORATADINE 10 MG TAB GTB (07:54)
[2018-02-03] MEDS: CARBAMAZEPINE 200 MG TAB PO ×2 (07:54→20:37)
[2018-02-03] MEDS: VALPROIC ACID LIQUID CUP 250 MG/5 ML CUP GTB ×3 (07:54→20:37)
[2018-02-03] MEDS: LEVETIRACETAM 1500 MG (PMX) 100 ML IVPB ×2 (07:55→20:34)
[2018-02-03] MEDS: MULTIVITAMINS 30 ML CUP GTB (07:56)
[2018-02-03] MEDS ORDERED: POTASSIUM CHLORIDE 100 ML IVPB (08:00)
[2018-02-03] MEDS: LINEZOLID 600 MG/D5W (PMX) 300 ML IVPB ×2 (08:22→20:47)
[2018-02-03] MEDS: BALSAM PERU/CASTOR OIL 60 GM TUBE TOP ×2 (08:36→20:38)
[2018-02-03 08:53] LABS: AADO2 Arterial 37.8 mmHg (7.0-24.0); Allen Test ACCEPTAB; Arterial Base Excess -12.6 mmol/L (-3.0-3); Arterial Blood Gas Oxygen Sat 98.6 mmHG (95.0-98.0); Arterial COHb 0.3 % (0.0-3.0); Arterial Fraction of Oxyhgb 98.1 % (93.0-99.0); Arterial HCO3 12.7 mmol/L (22.0-26.0); Arterial MetHb 0.2 % (0.0-1.5); Arterial Total Hemglobin 7.9 g/dl (12.0-18.0); Arterial pCO2 26.7 mmhg (35-45); MODE VENT - AC; Site Right Radial
[2018-02-03 09:15] LABS: LACTIC ACID 3.8 mmol/L (0.5-2.0)
[2018-02-03] MEDS: PHENOBARBITAL 32.4 MG TAB PO ×2 (09:34→20:38)
[2018-02-03] MEDS: POTASSIUM CHLORIDE 50 ML IVPB ×2 (09:35→10:59)
[2018-02-03] MEDS: SODIUM BICARBONATE (IV ADD) 100 MEQ in DEXTROSE 5% 1,000 ML IV (10:44)
[2018-02-03 14:40] LABS: ANION GAP 21 (5-13); BLOOD UREA NITROGEN 34 mg/dl (7-20); CALCIUM 8.7 mg/dl (8.4-10.2); CARBON DIOXIDE 11 mmol/L (21-31); CHLORIDE 113 mmol/L (97-110); CREATININE 1.56 mg/dl (0.61-1.24); Estimated GFR 48 mL/min (>60); GLUCOSE 159 mg/dl (70-220); POTASSIUM 3.8 mmol/L (3.5-5.1); SODIUM 145 mmol/L (135-144)
[2018-02-03] MEDS ORDERED: TPN 1,000 ML IV (19:24)
[2018-02-03 20:06] LABS: ALANINE AMINOTRANSFERASE 42 IU/L (13-69); ALBUMIN 2.2 g/dl (3.3-4.9); ALBUMIN/GLOBULIN RATIO 0.64; ALKALINE PHOSPHATASE 750 IU/L (42-121); ANION GAP 20 (5-13); ASPARTATE AMINO TRANSFERASE 89 IU/L (15-46); BILIRUBIN,INDIRECT 0.5 mg/dl (0-1.1); BILIRUBIN,TOTAL 5.9 mg/dl (0.2-1.3); BLOOD UREA NITROGEN 31 mg/dl (7-20); CALCIUM 8.7 mg/dl (8.4-10.2); CARBON DIOXIDE 13 mmol/L (21-31); CHLORIDE 114 mmol/L (97-110); CREATININE 1.49 mg/dl (0.61-1.24); Estimated GFR 50 mL/min (>60); GLUCOSE 97 mg/dl (70-220); MAGNESIUM 1.6 mg/dl (1.7-2.5); PHOSPHORUS 6.8 mg/dl (2.5-4.9); POTASSIUM 3.2 mmol/L (3.5-5.1); SODIUM 147 mmol/L (135-144); TOTAL PROTEIN 5.6 g/dl (6.1-8.1); TRIGLYCERIDES 170 mg/dl (0-149)
[2018-02-03 20:13] LABS: PREALBUMIN 11.5 mg/dl (17.6-36.0)
[2018-02-03] MEDS: POTASSIUM CHLORIDE 100 ML IVPB (23:10)
[2018-02-03] MEDS: MAGNESIUM SULFATE 3 GM in DEXTROSE 5% 100 ML IVPB (23:10)
[2018-02-04] MEDS: ACCU-CHEK XX ×7 (01:00→21:00)
[2018-02-04] MEDS: SODIUM BICARBONATE (IV ADD) 100 MEQ in DEXTROSE 5% 1,000 ML IV (01:24)
[2018-02-04] MEDS: POTASSIUM CHLORIDE 100 ML IVPB ×5 (01:47→18:01)
[2018-02-04] MEDS: MIDODRINE 5 MG TAB PO ×5 (01:47→23:19)
[2018-02-04] MEDS: INSULIN ASPART [NOVOLOG] 3 ML PEN SC ×6 (01:56→20:26)
[2018-02-04] MEDS: LANSOPRAZOLE 30 MG CAP GTB (05:35)
[2018-02-04] MEDS: METOCLOPRAMIDE 10 MG INJ IV ×3 (05:35→23:20)
[2018-02-04] MEDS: CEFTAZIDIME IVPB ×3 (05:38→23:20)
[2018-02-04] MEDS: AVIBACTAM IVPB ×3 (05:38→23:20)
[2018-02-04] MEDS: SOD CHLORIDE 0.9% IVPB ×3 (05:38→23:20)
[2018-02-04] MEDS: NYSTATIN 30 GM POWDER BTL TOP ×2 (09:00→21:00)
[2018-02-04 09:03] LABS: ADD MAN DIFF? NO
[2018-02-04 09:06] LABS: ABNORMAL IP MESSAGE 1; BASOPHILS % 0.1 % (0.0-2.0); EOSINOPHILS # 0.1 10^3/ul (0.0-0.5); EOSINOPHILS % 0.7 % (0.0-7.0); HEMATOCRIT 21.6 % (42.0-52.0); LYMPHOCYTES # 1.4 10^3/ul (0.8-2.9); LYMPHOCYTES % 9.1 % (15.0-51.0); MEAN CORPUSCULAR HEMOGLOBIN 28.7 pg (29.0-33.0); MEAN CORPUSCULAR HGB CONC 30.6 g/dl (32.0-37.0); MEAN CORPUSCULAR VOLUME 93.9 fl (82.0-101.0); MONOCYTE # 1.8 10^3/ul (0.3-0.9); MONOCYTES % 11.5 % (0.0-11.0); NEUTROPHIL # 11.9 10^3/ul (1.6-7.5); NEUTROPHILS % 77.2 % (39.0-77.0); NUCLEATED RED BLOOD CELLS # 0.1 10^3/ul (0.0-0.0); NUCLEATED RED BLOOD CELLS% 0.3 /100WBC (0.0-0.0); PLATELET COUNT 51 10^3/UL (140-415); POSITIVE DIFF @See below; RED CELL DISTRIBUTION WIDTH 21.7 % (11.5-14.5)
[2018-02-04 09:06] LABS: WHITE BLOOD COUNT 15.3 10^3/ul (4.8-10.8)
[2018-02-04 09:16] LABS: HEMOGLOBIN 6.6 g/dl (14.0-18.0)
[2018-02-04 09:48] LABS: ANION GAP 21 (5-13); BLOOD UREA NITROGEN 26 mg/dl (7-20); CALCIUM 8.2 mg/dl (8.4-10.2); CARBON DIOXIDE 14 mmol/L (21-31); CHLORIDE 111 mmol/L (97-110); Estimated GFR 59 mL/min (>60); GLUCOSE 181 mg/dl (70-220); MAGNESIUM 1.9 mg/dl (1.7-2.5); POTASSIUM 3.2 mmol/L (3.5-5.1); SODIUM 146 mmol/L (135-144)
[2018-02-04] MEDS: LEVETIRACETAM 1500 MG (PMX) 100 ML IVPB ×2 (10:05→20:14)
[2018-02-04] MEDS: CITRIC ACID/NA CITRATE 30 ML CUP GTB ×2 (10:05→20:14)
[2018-02-04] MEDS: LINEZOLID 600 MG/D5W (PMX) 300 ML IVPB (10:05)
[2018-02-04] MEDS: MULTIVITAMINS 30 ML CUP GTB (10:06)
[2018-02-04] MEDS: FAMOTIDINE 20 MG INJ IV (10:06)
[2018-02-04] MEDS: LORATADINE 10 MG TAB GTB (10:06)
[2018-02-04] MEDS: CARBAMAZEPINE 200 MG TAB PO ×2 (10:06→20:15)
[2018-02-04] MEDS: BALSAM PERU/CASTOR OIL 60 GM TUBE TOP ×2 (10:07→21:00)
[2018-02-04] MEDS: COLLAGENASE 5 GM (UD JAR) TOP (10:07)
[2018-02-04] MEDS: SILVER SULFADIAZINE 1% 25 GM CR TOP ×2 (10:08→21:00)
[2018-02-04] MEDS: PHENOBARBITAL 32.4 MG TAB PO ×2 (11:37→20:15)
[2018-02-04] MEDS: VALPROIC ACID LIQUID CUP 250 MG/5 ML CUP GTB ×3 (11:37→20:14)
[2018-02-04 15:02] LABS: VALPROATE 38 ug/ml (50-100)
[2018-02-04] MEDS: TPN 1,000 ML IV (16:49)
[2018-02-04] MEDS: DAPTOMYCIN 420 MG in SOD CHLORIDE 0.9% 100 ML IVPB (17:28)
[2018-02-05 00:25] LABS: IMMEDIATE SPIN CROSSMATCH 1 1
[2018-02-05] MEDS: ACCU-CHEK XX ×7 (02:00→20:42)
[2018-02-05] MEDS: INSULIN ASPART [NOVOLOG] 3 ML PEN SC ×6 (02:20→22:01)
[2018-02-05] MEDS: METOCLOPRAMIDE 10 MG INJ IV ×3 (05:38→21:47)
[2018-02-05] MEDS: MIDODRINE 5 MG TAB PO ×4 (05:38→23:22)
[2018-02-05] MEDS: LANSOPRAZOLE 30 MG CAP GTB (05:38)
[2018-02-05 05:49] LABS: PLATELET COUNT 39 10^3/UL (140-415)
[2018-02-05 06:07] LABS: INR 2.05; PROTIME 23.6 Sec (11.9-14.9); PT RATIO 1.8
[2018-02-05] MEDS: AVIBACTAM IVPB ×3 (06:10→21:47)
[2018-02-05] MEDS: SOD CHLORIDE 0.9% IVPB ×3 (06:10→21:47)
[2018-02-05] MEDS: CEFTAZIDIME IVPB ×3 (06:10→21:47)
[2018-02-05 06:11] LABS: PARTIAL THROMBOPLASTIN TIME 70.3 Sec (23.0-35.0)
[2018-02-05 06:17] LABS: ANION GAP 19 (5-13); Estimated GFR > 60 mL/min (>60)
[2018-02-05 06:21] LABS: BLOOD UREA NITROGEN 25 mg/dl (7-20); CARBON DIOXIDE 14 mmol/L (21-31); CHLORIDE 114 mmol/L (97-110); CREATININE 1.18 mg/dl (0.61-1.24); GLUCOSE 146 mg/dl (70-220); MAGNESIUM 1.5 mg/dl (1.7-2.5); PHOSPHORUS 5.1 mg/dl (2.5-4.9); SODIUM 147 mmol/L (135-144)
[2018-02-05 06:24] LABS: CREATINE KINASE < 20 IU/L (23-200)
[2018-02-05 06:32] LABS: THROMBIN TIME 21.5 SEC (13.8-19.1)
[2018-02-05] MEDS: MAGNESIUM SULFATE 2 GM/50 ML 50 ML IVPB (08:29)
[2018-02-05 08:43] LABS: ABNORMAL IP MESSAGE 1; HEMATOCRIT 24.4 % (42.0-52.0); HEMOGLOBIN 7.6 g/dl (14.0-18.0); MEAN CORPUSCULAR HEMOGLOBIN 29.9 pg (29.0-33.0); MEAN CORPUSCULAR HGB CONC 31.1 g/dl (32.0-37.0); MEAN CORPUSCULAR VOLUME 96.1 fl (82.0-101.0); NUCLEATED RED BLOOD CELLS% 0.4 /100WBC (0.0-0.0); POSITIVE DIFF @See below; RED BLOOD COUNT 2.54 10^6/ul (4.70-6.10); RED CELL DISTRIBUTION WIDTH 19.8 % (11.5-14.5)
[2018-02-05 08:43] LABS: WHITE BLOOD COUNT 13.4 10^3/ul (4.8-10.8)
[2018-02-05 08:50] LABS: PLATELET COUNT 38 10^3/UL (140-415)
[2018-02-05 08:51] LABS: ADD MAN DIFF? YES
[2018-02-05] MEDS: VALPROIC ACID LIQUID CUP 250 MG/5 ML CUP GTB ×3 (09:11→21:47)
[2018-02-05] MEDS: MULTIVITAMINS 30 ML CUP GTB (09:12)
[2018-02-05] MEDS: CITRIC ACID/NA CITRATE 30 ML CUP GTB ×2 (09:12→23:21)
[2018-02-05] MEDS: LORATADINE 10 MG TAB GTB (09:12)
[2018-02-05] MEDS: PHENOBARBITAL 32.4 MG TAB PO ×2 (09:13→21:46)
[2018-02-05] MEDS: FAMOTIDINE 20 MG INJ IV (09:13)
[2018-02-05] MEDS: NYSTATIN 30 GM POWDER BTL TOP ×2 (09:41→21:47)
[2018-02-05] MEDS: SILVER SULFADIAZINE 1% 25 GM CR TOP ×2 (09:41→21:47)
[2018-02-05] MEDS: BALSAM PERU/CASTOR OIL 60 GM TUBE TOP ×2 (09:41→21:47)
[2018-02-05] MEDS: COLLAGENASE 5 GM (UD JAR) TOP (09:42)
[2018-02-05 09:53] LABS: ANISOCYTOSIS 1+ (0-0); BAND NEUTROPHILS #M 1.2 10^3/ul (0.0-0.6); BAND NEUTROPHILS % (M) 9 % (0-4); BASOPHIL #M 0.1 10^3/ul (0.0-0.0); BASOPHILS % (M) 1 % (0-2); HYPOCHROMASIA 1+ (0-0); LYMPHOCYTES % (M) 8 % (15-51); MONOCYTE #M 0.9 10^3/ul (0.3-0.9); MONOCYTES % (M) 7 % (0-11); PLATELET ESTIMATE SIG DECREASED; POIKILOCYTOSIS 2+ (0-0); POLYCHROMASIA 2+ (0-0); SEG NEUT #M 10.2 10^3/ul (1.6-7.5); SEGMENTED NEUTROPHILS (M) % 75 % (39-77); SMUDGE%M 6 % (0-0)
[2018-02-05] MEDS: CARBAMAZEPINE 200 MG TAB PO ×2 (10:57→21:46)
[2018-02-05] MEDS: LEVETIRACETAM 1500 MG (PMX) 100 ML IVPB ×2 (10:57→21:48)
[2018-02-05] MEDS: POTASSIUM CHLORIDE 100 ML IVPB (11:58)
[2018-02-05] MEDS: TPN 1,000 ML IV (13:32)
[2018-02-05] MEDS: DAPTOMYCIN 420 MG in SOD CHLORIDE 0.9% 100 ML IVPB (16:19)
[2018-02-06] MEDS: INSULIN ASPART [NOVOLOG] 3 ML PEN SC ×3 (00:45→08:51)
[2018-02-06] MEDS: ACCU-CHEK XX ×3 (00:46→08:54)
[2018-02-06 03:12] LABS: PHENOBARBITAL 29.6 mg/L (15.0-40.0)
[2018-02-06] MEDS: MIDODRINE 5 MG TAB PO (05:53)
[2018-02-06] MEDS: LANSOPRAZOLE 30 MG CAP GTB (05:53)
[2018-02-06] MEDS: CEFTAZIDIME IVPB (05:54)
[2018-02-06] MEDS: AVIBACTAM IVPB (05:54)
[2018-02-06] MEDS: SOD CHLORIDE 0.9% IVPB (05:54)
[2018-02-06] MEDS: METOCLOPRAMIDE 10 MG INJ IV (05:54)
[2018-02-06] MEDS: TPN 1,000 ML IV (07:00)
[2018-02-06] MEDS: NYSTATIN 30 GM POWDER BTL TOP (08:20)
[2018-02-06] MEDS: MULTIVITAMINS 30 ML CUP GTB (08:21)
[2018-02-06] MEDS: VALPROIC ACID LIQUID CUP 250 MG/5 ML CUP GTB ×2 (08:21→12:39)
[2018-02-06] MEDS: CITRIC ACID/NA CITRATE 30 ML CUP GTB (08:21)
[2018-02-06] MEDS: FAMOTIDINE 20 MG INJ IV (08:22)
[2018-02-06] MEDS: COLLAGENASE 5 GM (UD JAR) TOP (08:33)
[2018-02-06] MEDS: LEVETIRACETAM 1500 MG (PMX) 100 ML IVPB (09:03)
[2018-02-06] MEDS: LORATADINE 10 MG TAB GTB (09:10)
[2018-02-06] MEDS: BALSAM PERU/CASTOR OIL 60 GM TUBE TOP (09:11)
[2018-02-06] MEDS: SILVER SULFADIAZINE 1% 25 GM CR TOP (09:11)
[2018-02-06] MEDS: PHENOBARBITAL 32.4 MG TAB PO (09:11)
[2018-02-06] MEDS: CARBAMAZEPINE 200 MG TAB PO (09:11)
[2018-02-06 09:29] LABS: ADD MAN DIFF? NO
[2018-02-06 09:34] LABS: ABNORMAL IP MESSAGE 1; BASOPHILS % 0.1 % (0.0-2.0); EOSINOPHILS # 0.2 10^3/ul (0.0-0.5); EOSINOPHILS % 1.5 % (0.0-7.0); HEMATOCRIT 24.3 % (42.0-52.0); HEMOGLOBIN 7.7 g/dl (14.0-18.0); LYMPHOCYTES # 1.4 10^3/ul (0.8-2.9); LYMPHOCYTES % 9.5 % (15.0-51.0); MEAN CORPUSCULAR HEMOGLOBIN 29.8 pg (29.0-33.0); MEAN CORPUSCULAR HGB CONC 31.7 g/dl (32.0-37.0); MEAN CORPUSCULAR VOLUME 94.2 fl (82.0-101.0); MEAN PLATELET VOLUME 13.1 fl (7.4-10.4); MONOCYTE # 2.3 10^3/ul (0.3-0.9); MONOCYTES % 15.3 % (0.0-11.0); NEUTROPHIL # 10.9 10^3/ul (1.6-7.5); NUCLEATED RED BLOOD CELLS # 0.1 10^3/ul (0.0-0.0); NUCLEATED RED BLOOD CELLS% 0.3 /100WBC (0.0-0.0); POSITIVE DIFF @See below; RED BLOOD COUNT 2.58 10^6/ul (4.70-6.10); RED CELL DISTRIBUTION WIDTH 19.8 % (11.5-14.5)
[2018-02-06 09:34] LABS: WHITE BLOOD COUNT 15.2 10^3/ul (4.8-10.8)
[2018-02-06 09:42] LABS: PLATELET COUNT 30 10^3/UL (140-415)
[2018-02-06 09:52] LABS: ANION GAP 16 (5-13); BLOOD UREA NITROGEN 26 mg/dl (7-20); CALCIUM 8.4 mg/dl (8.4-10.2); CARBON DIOXIDE 16 mmol/L (21-31); CHLORIDE 116 mmol/L (97-110); CREATININE 1.09 mg/dl (0.61-1.24); Estimated GFR > 60 mL/min (>60); GLUCOSE 186 mg/dl (70-220); MAGNESIUM 1.6 mg/dl (1.7-2.5); PHOSPHORUS 3.4 mg/dl (2.5-4.9); SODIUM 148 mmol/L (135-144)
[2018-02-06 10:06] LABS: POTASSIUM 2.4 mmol/L (3.5-5.1)
[2018-02-06] MEDS ORDERED: INSULIN DETEMIR [LEVEMIR] (100 UNITS/ML) SYG SC (10:30)
[2018-02-06] MEDS: MAGNESIUM SULFATE 2 GM/50 ML 50 ML IVPB (10:37)
[2018-02-06] MEDS: POTASSIUM CHLORIDE 50 ML IVPB (10:53)
[2018-02-06] MEDS: morphine 1 MG/ML 30 ML (PCA) IV (15:51)
[2018-02-07] MEDS: LEVETIRACETAM 1500 MG (PMX) 100 ML IVPB ×3 (00:04→21:14)
[2018-02-07] MEDS: VALPROIC ACID LIQUID CUP 250 MG/5 ML CUP GTB ×4 (00:05→23:01)
[2018-02-07] MEDS: CARBAMAZEPINE 200 MG TAB PO ×3 (00:06→23:01)
[2018-02-07] MEDS: PHENOBARBITAL 32.4 MG TAB PO ×3 (00:10→21:14)
[2018-02-07] MEDS: morphine 1 MG/ML 30 ML (PCA) IV (07:03)
[2018-02-07] MEDS: LORAZEPAM 2 MG INJ IV (10:57)
[2018-02-07] MEDS: morphine (DRIP) 100 MG/100 ML 100 ML IV (21:49)
[2018-02-08] MEDS: ACETAMINOPHEN 650MG/20.3ML CUP GTB (06:18)
[2018-02-08] MEDS: LEVETIRACETAM 1500 MG (PMX) 100 ML IVPB ×2 (08:50→21:28)
[2018-02-08] MEDS: VALPROIC ACID LIQUID CUP 250 MG/5 ML CUP GTB ×3 (08:56→21:27)
[2018-02-08] MEDS: PHENOBARBITAL 32.4 MG TAB PO ×2 (08:57→21:28)
[2018-02-08] MEDS: CARBAMAZEPINE 200 MG TAB PO ×2 (08:57→21:28)
[2018-02-08] MEDS ORDERED: morphine 1 MG/ML 30 ML (PCA) IV (15:00)
[2018-02-09] MEDS: CARBAMAZEPINE 200 MG TAB PO ×2 (09:14→20:41)
[2018-02-09] MEDS: VALPROIC ACID LIQUID CUP 250 MG/5 ML CUP GTB ×3 (09:14→20:41)
[2018-02-09] MEDS: PHENOBARBITAL 32.4 MG TAB PO ×2 (09:14→20:41)
[2018-02-09] MEDS: LEVETIRACETAM 1500 MG (PMX) 100 ML IVPB ×2 (09:22→20:40)
[2018-02-10] MEDS ORDERED: morphine 2 MG INJ IV (07:30)
[2018-02-10] MEDS: VALPROIC ACID LIQUID CUP 250 MG/5 ML CUP GTB ×3 (08:39→20:41)
[2018-02-10] MEDS: CARBAMAZEPINE 200 MG TAB PO ×2 (08:39→20:41)
[2018-02-10] MEDS: LEVETIRACETAM 1500 MG (PMX) 100 ML IVPB ×2 (08:40→20:41)
[2018-02-10] MEDS: PHENOBARBITAL 32.4 MG TAB PO ×2 (08:50→20:42)
[2018-02-10] MEDS: SOD CHLORIDE 0.9% 1,000 ML IV (12:01)
[2018-02-11] MEDS: VALPROIC ACID LIQUID CUP 250 MG/5 ML CUP GTB ×3 (09:30→21:52)
[2018-02-11] MEDS: LEVETIRACETAM 1500 MG (PMX) 100 ML IVPB ×2 (09:30→21:53)
[2018-02-11] MEDS: PHENOBARBITAL 32.4 MG TAB PO ×2 (09:30→21:53)
[2018-02-11] MEDS: CARBAMAZEPINE 200 MG TAB PO ×2 (09:30→21:53)
[2018-02-11] MEDS: METOCLOPRAMIDE 10 MG INJ IV ×2 (12:42→18:13)
[2018-02-12] MEDS: METOCLOPRAMIDE 10 MG INJ IV ×4 (00:08→18:01)
[2018-02-12 06:09] LABS: WHITE BLOOD COUNT 19.8 10^3/ul (4.8-10.8)
[2018-02-12 06:09] LABS: ABNORMAL IP MESSAGE 1; HEMATOCRIT 14.7 % (42.0-52.0); MEAN CORPUSCULAR HEMOGLOBIN 30.6 pg (29.0-33.0); MEAN CORPUSCULAR HGB CONC 29.9 g/dl (32.0-37.0); MEAN CORPUSCULAR VOLUME 102.1 fl (82.0-101.0); NUCLEATED RED BLOOD CELLS% 0.6 /100WBC (0.0-0.0); PLATELET COUNT 87 10^3/UL (140-415); POSITIVE DIFF @See below; RED BLOOD COUNT 1.44 10^6/ul (4.70-6.10); RED CELL DISTRIBUTION WIDTH 21.3 % (11.5-14.5)
[2018-02-12 06:21] LABS: ADD MAN DIFF? YES; HEMOGLOBIN 4.4 g/dl (14.0-18.0)
[2018-02-12 06:46] LABS: ALANINE AMINOTRANSFERASE 14 IU/L (13-69); ALBUMIN 1.9 g/dl (3.3-4.9); ALBUMIN/GLOBULIN RATIO 0.67; ALKALINE PHOSPHATASE 553 IU/L (42-121); ANION GAP 25 (5-13); ASPARTATE AMINO TRANSFERASE 26 IU/L (15-46); BILIRUBIN,INDIRECT 0.6 mg/dl (0-1.1); BILIRUBIN,TOTAL 2.9 mg/dl (0.2-1.3); BLOOD UREA NITROGEN 51 mg/dl (7-20); CALCIUM 8.5 mg/dl (8.4-10.2); CHLORIDE 115 mmol/L (97-110); CREATININE 2.12 mg/dl (0.61-1.24); Estimated GFR 34 mL/min (>60); GLUCOSE 109 mg/dl (70-220); SODIUM 149 mmol/L (135-144); TOTAL PROTEIN 4.7 g/dl (6.1-8.1)
[2018-02-12 06:54] LABS: CARBON DIOXIDE 9 mmol/L (21-31); POTASSIUM 2.8 mmol/L (3.5-5.1)
[2018-02-12 07:12] LABS: HEMATOCRIT 16.3 % (42.0-52.0)
[2018-02-12] MEDS ORDERED: POTASSIUM CHLORIDE 100 ML IVPB ×2 (07:30→10:30)
[2018-02-12 07:48] LABS: BAND NEUTROPHILS #M 9.1 10^3/ul (0.0-0.6); BAND NEUTROPHILS % (M) 46 % (0-4); BASOPHIL #M 0.1 10^3/ul (0.0-0.0); BASOPHILS % (M) 1 % (0-2); ERYTHROBLAST% (NRBC) (M) 2 % (0-0); GIANT THROMBO% (M) 3 % (0-0); LYMPHOCYTES #M 1.3 10^3/ul (0.8-2.9); LYMPHOCYTES % (M) 7 % (15-51); METAMYELOCYTES #M 0.1 10^3/ul (0.0-0.0); METAMYELOCYTES %M 1 % (0-0); MONOCYTE #M 0.9 10^3/ul (0.3-0.9); MONOCYTES % (M) 5 % (0-11); MYELOCYTES #M 0.1 10^3/ul (0.0-0.0); MYELOCYTES % (M) 1 % (0-0); SEG NEUT #M 9.5 10^3/ul (1.6-7.5); SEGMENTED NEUTROPHILS (M) % 39 % (39-77); SMUDGE%M 4 % (0-0)
[2018-02-12] MEDS: POTASSIUM CHLORIDE IV (09:20)
[2018-02-12] MEDS: SOD CHLORIDE 0.9% IV (09:20)
[2018-02-12] MEDS: CARBAMAZEPINE 200 MG TAB PO ×2 (09:21→21:01)
[2018-02-12] MEDS: PHENOBARBITAL 32.4 MG TAB PO ×2 (09:21→21:12)
[2018-02-12] MEDS: LEVETIRACETAM 1500 MG (PMX) 100 ML IVPB ×2 (09:30→21:13)
[2018-02-12] MEDS: VALPROIC ACID LIQUID CUP 250 MG/5 ML CUP GTB ×3 (10:07→21:01)
[2018-02-12] MEDS: NS + KCL 20 MEQ 1,000 ML IV ×2 (14:09→20:30)
[2018-02-12] MEDS: SOD CHLORIDE 0.9% 1,000 ML IV ×2 (17:21→18:49)
[2018-02-12] MEDS: SOD CHLORIDE 0.9% 500 ML IV (21:13)
[2018-02-12] MEDS: ALBUMIN HUMAN 25% 100 ML IV (22:54)
[2018-02-13] MEDS: METOCLOPRAMIDE 10 MG INJ IV ×3 (00:07→12:15)
[2018-02-13] MEDS: ALBUMIN HUMAN 25% 100 ML IV (03:14)
[2018-02-13] MEDS: SOD CHLORIDE 0.9% 500 ML IV (03:57)
[2018-02-13] MEDS: NS + KCL 20 MEQ 1,000 ML IV (05:41)
[2018-02-13] MEDS: PHENOBARBITAL 32.4 MG TAB PO (09:01)
[2018-02-13] MEDS: LEVETIRACETAM 1500 MG (PMX) 100 ML IVPB (09:02)
[2018-02-13] MEDS: CARBAMAZEPINE 200 MG TAB PO (09:02)
[2018-02-13] MEDS: VALPROIC ACID LIQUID CUP 250 MG/5 ML CUP GTB ×2 (09:02→12:15)
== END 2018-02-13 12:33 | disposition expired | DRG 870 ==
LOC: TEL 02-05 13:43 → ICU 19:01
PROVIDERS: Hospitalist
PROC: 02HV33Z Insertion of Infusion Device into Superior Vena Cava, Percutaneous Approach (ICD-10-PCS; 2018-01-26)
PROC: 5A1955Z Respiratory Ventilation, Greater than 96 Consecutive Hours (ICD-10-PCS; principal; 2018-01-27)
PROC: 30233N1 Transfusion of Nonautologous Red Blood Cells into Peripheral Vein, Percutaneous Approach (ICD-10-PCS; 2018-02-04)
DX: A41.9 Sepsis, unspecified organism (principal); L89.153 Pressure ulcer of sacral region, stage 3; R65.21 Severe sepsis with septic shock; K85.90 Acute pancreatitis without necrosis or infection, unspecified; N17.0 Acute kidney failure with tubular necrosis; J18.9 Pneumonia, unspecified organism; J96.21 Acute and chronic respiratory failure with hypoxia; I81 Portal vein thrombosis; G93.1 Anoxic brain damage, not elsewhere classified; E87.2 Acidosis; E87.1 Hypo-osmolality and hyponatremia; N39.0 Urinary tract infection, site not specified; D68.9 Coagulation defect, unspecified; I82.890 Acute embolism and thrombosis of other specified veins; D68.59 Other primary thrombophilia; I82.4Z2 Acute embolism and thrombosis of unspecified deep veins of left distal lower extremity; K56.7 Ileus, unspecified; K63.2 Fistula of intestine; E87.5 Hyperkalemia; G40.909 Epilepsy, unspecified, not intractable, without status epilepticus; I25.10 Atherosclerotic heart disease of native coronary artery without angina pectoris; N18.9 Chronic kidney disease, unspecified; D63.1 Anemia in chronic kidney disease; Z99.81 Dependence on supplemental oxygen; Z93.0 Tracheostomy status; Z93.1 Gastrostomy status; I95.9 Hypotension, unspecified; E11.22 Type 2 diabetes mellitus with diabetic chronic kidney disease; E83.9 Disorder of mineral metabolism, unspecified; S43.006A Unspecified dislocation of unspecified shoulder joint, initial encounter; R19.7 Diarrhea, unspecified; Z86.718 Personal history of other venous thrombosis and embolism; I46.9 Cardiac arrest, cause unspecified; Z95.9 Presence of cardiac and vascular implant and graft, unspecified; E78.5 Hyperlipidemia, unspecified; D73.5 Infarction of spleen; K31.84 Gastroparesis; I45.81 Long QT syndrome; R60.1 Generalized edema; K70.9 Alcoholic liver disease, unspecified; R14.0 Abdominal distension (gaseous); Z66 Do not resuscitate; Z87.440 Personal history of urinary (tract) infections; Z86.59 Personal history of other mental and behavioral disorders; K75.9 Inflammatory liver disease, unspecified
CPT/HCPCS: 36430; 36600; 70450; 71045; 74018; 74176; 76775; 76937; 80048; 80053; 80076; 80164; 80184; 81001; 81003; 82043; 82247; 82248; 82270; 82436; 82550; 82607; 82728; 82746; 82803; 82962; 83036; 83605; 83735; 84100; 84132; 84133; 84134; 84155; 84300; 84478; 85014; 85018; 85025; 85045; 85049; 85610; 85670; 85730; 86850; 86900; 86901; 86920; 87040; 87075; 87081; 94002; 94003; 95819